=== PATIENT | female | born 1980 | race Caucasian/White ===

== ENCOUNTER 2019-03-26 01:34 | Emergency (ER) | payer SELFPAY ==
[~2019-03-26] VITALS: Ht 177.8 cm; Wt 122.5 kg
[2019-03-26 02:03] VITALS: BP 152/104
== END 2019-03-26 03:40 | disposition home or self-care (01) ==
LOC: ER 01:42
DX: H66.92 Otitis media, unspecified, left ear (principal); Z88.6 Allergy status to analgesic agent; Z91.040 Latex allergy status

== ENCOUNTER → 2019-10-13 | Emergency (ER) | payer MEDICAID ==
[~2019-10-13] VITALS: Ht 177.8 cm; Wt 86.2 kg
[~2019-10-13] MED LIST: HYDROmorphone HCL 2 MG/ML VL IV ONE; KETOROLAC TROMETH 30 MG/ML 1ML VIAL IV ONE; ONDANSETRON HCL 4 MG/2 ML VIAL IV ONE; SODIUM CHLORIDE 0.9% 500 ML IV ONE
[2019-10-13 15:07] VITALS: BP 138/97
== END | disposition home or self-care (01) ==
LOC: ER 09:47
DX: R51 Headache (principal); E86.0 Dehydration
CPT/HCPCS: 96361; 96374; 96375; 99284; J1885; J2405; J7040

== ENCOUNTER 2025-04-10 14:38 | Emergency (ER) | payer MEDICAID ==
[~2025-04-10] VITALS: Ht 172.7 cm; Wt 96.3 kg
[2025-04-10 15:15] VITALS: BP 156/71; PULSE 65; RESP 16; TEMP 98; O2SAT 99
--- NOTE | 2025-04-10 15:45 | ED.PDOC ---
History of Present Illness HPI Comments A 45 YEAR OLD FEMALE PRESENTS TO THE ED WITH COMPLAINT OF REQUEST FOR WORK NOTE. PATIENT IS HERE IN THE ED TO REQUEST A WORK NOTE STATING THAT SHE IS OKAY TO RETURN TO WORK. PATIENT HAS NO COMPLAINTS AT THIS TIME. PATIENT DENIES FEVER, CHILLS, SHORTNESS OF BREATH, CHEST PAIN, ABDOMINAL PAIN, NAUSEA, VOMITING, HEADACHE, OR OTHER COMPLAINTS. NO OTHER SYMPTOMS OR MODIFYING FACTORS AT THIS TIME. PATIENT IS ALERT, ORIENTED X 4, AND HAS STEADY GAIT. Chief Complaint: Medical Clearance Time Seen by MD: 14:45 Primary Care Provider: MADAI Stubbs Notes: Nurses Notes, Medications Allergies: Coded Allergies: Hydromorphone (Verified Allergy, Unknown, 03/26/19) Iodine (Verified Allergy, Unknown, 03/26/19) Latex (Verified Allergy, Unknown, 03/26/19) Information Source: Patient Mode of Arrival: Ambulatory Severity: None Timing: Days Duration: Since onset, Days Prehospital treatment: None Medication Refill: For: Other (REQUEST FOR WORK NOTE) Past Medical History PAST MEDICAL HISTORY: Denies Surgical History: Denies all surgeries KIER BOILER History: No Pertinent KIER BOILER History Family History Family History: Reviewed,noncontributory to illness, No family hx of Cancer, No family hx of DM, No family hx of Heart alfred, No family hx of HTN, No family hx ofKidney alfred, No family hx of Liver alfred, No family hx of Lung alfred, No family hx of Stroke Social History Smoker: Non-Smoker Alcohol: Denies ETOH Use Drugs: Denies Drug Use Lives In: Home Constitutional: denies: chills, diaphoresis, fatigue, fever, malaise, sweats, weakness, others EENTM: denies: blurred vision, double vision, ear bleeding, ear discharge, ear drainage, ear pain, ear ringing, eye pain, eye redness, hearing loss, mouth pain, mouth swelling, nasal discharge, nose bleeding, nose congestion, nose pain, photophobia, tearing, throat pain, throat swelling, voice changes, others Respiratory: denies: cough, hemoptysis, orthopnea, SOB at rest, shortness of breath, SOB with excertion, stridor, wheezing, others Cardiovascular: denies: chest pain, dizzy spells, diaphoresis, Dyspnea on exertion, edema, irregular heart beat, left arm pain, lightheadedness, palpitations, PND, syncope, others Gastrointestinal: denies: abdomen distended, abdominal pain, blood streaked bowels, constipated, diarrhea, dysphagia, difficulty swallowing, hematemesis, melena, nausea, poor appetite, poor fluid intake, rectal bleeding, rectal pain, vomiting, others Genitourinary: denies: abnormal vagina bleeding, burning, dyspareunia, dysuria, flank pain, frequency, hematuria, incontinence, pain, , vagina discharge, urgency, others Neurological: denies: dizziness, fainting, headache, left sided numbness, left sided weakness, numbness, paresthesia, pre-existing deficit, right sided num bness, right sided weakness, seizure, speech problems, tingling, tremors, weakness, others Musculoskeletal: denies: back pain, gout, joint pain, joint swelling, muscle pain, muscle stiffness, neck pain, others Integumetry: denies: bruises, change in color, change in hair/nails, dryness, laceration, lesions, lumps, rash, wounds, others Allergic/Immunocompromised: denies: Difficulty Healing, Frequent Infections, Hives, Itching, others Hematologic/Lymphatic: denies: anemia, blood clots, easy bleeding, easy bruising, swollen glands, others Endocrine: denies: excessive hunger, excessive sweating, excessive thirst, excessive urination, flushing, intolerance to cold, intolerance to heat, unexplained weight gain, unexplained weight loss, others Psychiatric: denies: anxiety, bipolar disorder, depression, hopeless, panic disorder, schizophrenia, sleepless, suicidal, others All Other Systems: Reviewed and Negative Physical Exam General Appearance: No Apparent Distress, Normal HEENT: Normal ENT Inspection, PERRL/EOMI, Pharynx Normal, TMs Normal Neck: Full Range of Motion, Non-Tender, Normal, Normal Inspection Respiratory: Chest Non-Tender, Lungs Clear, No Accessory Muscle Use, No Respiratory Distress, Normal Breath Sounds Cardiovascular: No Edema, No JVD, No Murmur, No Gallop, Normal Peripheral Pulses, Regular Rate/Rhythm Breast Exam: Deferred Gastrointestinal: No Organomegaly, Non Tender, No Pulsatile Mass, Normal Bowel Sounds, Soft Genitalia: Deferred Pelvic: Deferred Rectal: Deferred Extremities: No calf tenderness, Normal capillary refill, Normal inspection, Normal range of motion, Non-tender, No pedal edema Musculoskeletal : Apperance: Normal Neurologic: Alert, 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 Was a procedure done?: No Differential Dx Considerations may include: REQUEST FOR WORK NOTE, WELL CHECK X-Ray, Labs, Meds, VS Vital Signs Date Time Temp Pulse Resp B/P (MAP) Pulse Ox O2 Delivery O2 Flow Rate FiO2 04/10/25 14:39 97.0 65 16 169/106 99 97.0 X-Ray, Labs, Meds, VS Comment EXTERNAL MEDICAL RECORDS REVIEWED: [NONE] INDEPENDENT HISTORIANS: [NONE] SOCIAL DETERMINANTS OF HEALTH: [NONE] LABS ORDERED: NONE REVIEWED AND INTERPRETED RESULTS: NONE IMAGING ORDERED: NONE TREATMENTS ORDERED: NONE PROCEDURES PERFORMED: NONE CRITICAL CARE TIME: NONE I HAVE DISCUSSED THE PATIENT WITH THE ATTENDING PHYSICIAN DR. KENDRICK AND HE AGREES WITH THE PATIENT'S PLAN OF CARE AND DISPOSITION. BASED ON HISTORY OF PRESENT ILLNESS, AND PHYSICAL EXAM, PATIENT WILL BE DISCHARGED HOME. SHARED DECISION MAKING: PATIENT INSTRUCTED TO FOLLOW UP WITH PRIMARY CARE PROVIDER IN 1-2 DAYS FOR RE-EVALUATION OF SYMPTOMS. PATIENT VERBALIZES UNDERSTANDING TO RETURN TO ED FOR NEW OR WORSENING SYMPTOMS OR IF FOLLOW UP WITH PCP CANNOT BE OBTAINED. PATIENT FEELS COMFORTABLE GOING HOME AT THIS TIME. ALL QUESTIONS ADDRESSED AT TIME OF DISCHARGE. Time of 1ST Reevaluation: 15:46 Reevaluation 1ST: Improved Patient Education/Counseling: Diagnosis, Treatment, Need For Follow Up Family Education/Counseling: Diagnosis, Treatment, Need For Follow Up Medical Screening: No EMC Exist At This Time SEPSIS Sepsis Screen Date sepsis recognized/suspect: Apr 10, 2025 Time Sepsis recognized/suspect: 1441 Recent Procedure: No On Antibiotic Therapy: No Respiratory Rate >20: No Heart Rate >90: No Temp<36 C (96.8 F) or >38.3 C: No SBP <90 or MAP <65 mmHG: No New Acute Mental Status Change: No Is the patient on CPAP, BIPAP,: No Vital Signs Date Time Temp Pulse Resp B/P (MAP) Pulse Ox O2 Delivery O2 Flow Rate FiO2 04/10/25 14:39 97.0 65 16 169/106 99 97.0 Departure 1 Departure Time of Disposition: 15:47 Impression: Primary Impression: Return to work evaluation Disposition: HOME / SELF CARE / HOMELESS Condition: Stable Additional Instructions: FOLLOW-UP WITH PCP IN 1 TO 2 DAYS. RETURN TO ED FOR ANY NEW OR WORSENING SYMPTOMS. Discharged With: Self Critical Care Note Critical Care Time?: No Stability Stability form required: No I personally scribed for LILIANA WERNER ([email or web address]) on 04/10/25 at 15:45. Electronically submitted by Antoine Lawson ([email or web address]). LILIANA WERNER Apr 10, 2025 15:45
== END 2025-04-10 15:50 | disposition home or self-care (01) ==
LOC: ER 14:38
DX: Z01.818 Encounter for other preprocedural examination (principal); Z91.040 Latex allergy status; Z88.8 Allergy status to other drugs, medicaments and biological substances; Z88.5 Allergy status to narcotic agent